=== PATIENT | male | born 1970 | race Caucasian/White ===

== ENCOUNTER 2019-12-27 14:02 | Observation (INO) | payer BC ==
[~2019-12-27] VITALS: Ht 170.2 cm; Wt 86.2 kg
[2019-12-27 14:39] LABS: BASOPHILS % (AUTO) 0.5 % (0.0-5.0); EOSINOPHILS % (AUTO) 1.4 % (0.0-8.0); HEMATOCRIT 39.3 % (42-54); LYMPHOCYTES % (AUTO) 44.3 % (21.0-51.0); MEAN CORPUSCULAR HEMOGLOBIN 30.2 pg (27.0-33.0); MEAN CORPUSCULAR HGB CONC 34.4 g/dL (32.0-36.0); MEAN CORPUSCULAR VOLUME 87.9 fL (79-99); MONOCYTES % (AUTO) 8.3 % (3.0-13.0); NEUTROPHILS % (AUTO) 45.3 % (40.0-77.0); PLATELET COUNT (AUTO) 193 K/uL (130-400); RED BLOOD CELL COUNT(AUTO) 4.47 MIL/uL (4.50-6.20); RED CELL DISTRIBUTION WIDTH 11.9 % (11.0-15.5); WHITE BLOOD COUNT (AUTO) 5.9 K/uL (4.8-10.8)
[2019-12-27 14:50] LABS: INR 0.99 (0.85-1.15); PARTIAL THROMBOPLASTIN TIME 27.8 SEC (26.3-35.5); PROTHROMBIN TIME 10.4 SEC (9.6-11.6)
[2019-12-27 15:18] LABS: B-TYPE NATRIURETIC PEPTIDE 7 pg/mL (0-100)
[2019-12-27 15:47] LABS: CREATININE 0.7 mg/dL (0.5-1.5); POTASSIUM 3.8 mmol/L (3.5-5.1)
[2019-12-27 15:52] LABS: ALBUMIN 3.7 g/dL (3.5-5.0); BILIRUBIN,TOTAL 1.1 mg/dL (0.2-1.0); TOTAL PROTEIN, SERUM 7.1 g/dL (6.0-8.3)
[2019-12-27] MEDS ORDERED: POTASSIUM CHLORIDE 20 MEQ ERTAB PO PRN (17:15)
[2019-12-27] MEDS ORDERED: NITROGLYCERIN 0.4 MG SL TAB SL PRN ×2 (17:15→18:15)
[2019-12-27] MEDS ORDERED: POTASSIUM CHLORIDE 20MEQ/100ML 100 ML IV PRN (17:15)
[2019-12-27] MEDS ORDERED: LIDOCAINE HCL-MPF 1% 2ML VIAL IJ PRN (17:15)
[2019-12-27] MEDS ORDERED: POTASSIUM CHLORIDE 10% ELIXIR 20 MEQ/15 ML UDCUP PO PRN (17:15)
[2019-12-27 17:36] LABS: APPEARANCE,URINE Clear (CLEAR); BILIRUBIN,URINE Negative (NEGATIVE); COLOR,URINE Yellow (YELLOW); GLUCOSE, URINE (UA) Negative (NEGATIVE); KETONES,URINE Trace mg/dL (NEGATIVE); LEUKOCYTE ESTERASE ,URINE Negative (NEGATIVE); NITRATE,URINE Negative (NEGATIVE); OCCULT BLOOD,URINE Negative (NEGATIVE); PROTEIN,URINE Negative (NEGATIVE); UROBILINOGEN,URINE 0.2 mg/dL (0.2-1.0)
[2019-12-27 17:52] LABS: RBC,URINE 0-1 /HPF (0-1)
[2019-12-27 17:53] LABS: BACTERIA,URINE None Seen /HPF (None Seen); SQUAMOUS EPITHELIAL CELL,UR 0-2 /HPF (0-2); WBC,URINE 0-1 /HPF (0-1)
[2019-12-27] MEDS: SODIUM CHLORIDE 0.9% 1000ML 1,000 ML IV SCH (18:13)
[2019-12-27] MEDS ORDERED: ACETAMINOPHEN 325 MG TAB PO PRN (18:15)
[2019-12-27] MEDS ORDERED: DEXTROSE 50%-WATER 50 ML DISP.SYRIN IV PRN (18:15)
[2019-12-27] MEDS ORDERED: MORPHINE SULFATE 4 MG/1ML SYG IV PRN (18:15)
[2019-12-27] MEDS ORDERED: LACTULOSE 20 GM/30 ML UDCUP PO PRN (18:15)
[2019-12-27] MEDS ORDERED: GLUCAGON 1MG KIT 1 MG ML IM PRN (18:15)
[2019-12-27] MEDS ORDERED: MORPHINE SULFATE 2 MG/ML 1ML SYG IV PRN (18:15)
[2019-12-27] MEDS ORDERED: ASPIRIN 325 MG TABLET ONE (20:00)
[2019-12-27 20:25] LABS: CHOLESTEROL 134 mg/dL (<200); CREATINE KINASE, TOTAL 34 U/L (21-232); HDL CHOLESTEROL 78 mg/dL (29-71); LDL DIRECT 81 mg/dL (0-99); MYOGLOBIN 27 ng/mL (10-92); TRIGLYCERIDES 157 mg/dL (30-200); TROPONIN I < 0.04 ng/mL (0.00-0.06)
[2019-12-27] MEDS ORDERED: ATORVASTATIN CALCIUM 20 MG TABLET PO SCH (21:00)
[2019-12-27] MEDS: FAMOTIDINE/PF 20 MG/2 ML VIAL IV SCH (21:00)
[2019-12-27] MEDS: INSULIN HUMULIN R 100 UNIT/ML 3ML SQ SCH (21:00)
[2019-12-27] MEDS ORDERED: ATOR20TA65 PO (21:09)
[2019-12-27] MEDS ORDERED: TELM80TA10 PO (21:09)
[2019-12-27] MEDS ORDERED: GLIP5TAB11 PO (21:09)
[2019-12-27] MEDS ORDERED: METF500S7 PO (21:09)
[2019-12-27] MEDS ORDERED: FAMOTIDINE/PF 20 MG/2 ML VIAL IV ONE (22:17)
[2019-12-27] MEDS ORDERED: SODIUM CHLORIDE 0.9% 1000ML 1,000 ML IV ONE (22:17)
[2019-12-28] VITALS (12 sets, daily range): BP systolic 115–131; BP diastolic 69–85
--- NOTE | 2019-12-28 01:06 | NUR ---
received from er via stretcher into room 217/ tele status [id number]. no distress noted. no cp nor sob at this time. connected to bedside monitor. sinus rhythm hr 62. no ectopy noted. full assessment performed and documented. instructed on plan of care. including npo status. verbalized understanding.
--- NOTE | 2019-12-28 02:02 | NUR ---
instructed on npo status for possible LHC tomorrow. verbalized understanding.
[2019-12-28 04:36] LABS: MEAN CORPUSCULAR HEMOGLOBIN 30.2 pg (27.0-33.0); MEAN CORPUSCULAR HGB CONC 33.8 g/dL (32.0-36.0); MEAN CORPUSCULAR VOLUME 89.2 fL (79-99); PLATELET COUNT (AUTO) 193 K/uL (130-400); RED BLOOD CELL COUNT(AUTO) 4.37 MIL/uL (4.50-6.20); RED CELL DISTRIBUTION WIDTH 12.1 % (11.0-15.5); WHITE BLOOD COUNT (AUTO) 5.4 K/uL (4.8-10.8)
[2019-12-28 05:24] LABS: ALBUMIN 3.3 g/dL (3.5-5.0); CREATININE 0.7 mg/dL (0.5-1.5); POTASSIUM 3.9 mmol/L (3.5-5.1); TOTAL PROTEIN, SERUM 6.5 g/dL (6.0-8.3)
[2019-12-28] MEDS: SODIUM CHLORIDE 0.9% 1000ML 1,000 ML IV SCH ×2 (06:13→14:13)
[2019-12-28] MEDS: INSULIN HUMULIN R 100 UNIT/ML 3ML SQ SCH (06:14)
--- NOTE | 2019-12-28 07:52 | NUR ---
PT IS STABLE-HAS NO CHEST PAIN. PENDING DR HERRERA ROUNDS FOR PLAN OF CARE. WILL KEEP NPO UNTIL SEEN BY DR HERRERA
--- NOTE | 2019-12-28 08:44 | NUR ---
RECEIVED PHONE CALL FROM NURSE PRACTITIONER PER DIEMDOUGLAS ROD RN-ASKED ME TO GET PT READY FOR LHC WITH DR HERRERA. I HAVE NO ORDERS. I HAVE PAGED DR HERRERA TO CONFIRM
[2019-12-28] MEDS ORDERED: TELMISARTAN 80MG PO SCH (09:00)
[2019-12-28] MEDS ORDERED: ASPIRIN 325 MG TABLET PO SCH (09:00)
[2019-12-28] MEDS: FAMOTIDINE/PF 20 MG/2 ML VIAL IV SCH (09:00)
[2019-12-28] MEDS ORDERED: HEPARIN SODIUM 1000UNIT/ML 10ML VIAL ONE (09:11)
[2019-12-28] MEDS ORDERED: FENTANYL CITRATE PF 50 MCG/1 ML 2ML VIAL ONE (09:11)
[2019-12-28] MEDS ORDERED: NITROGLYCERIN 1 MG/VIAL VIAL IV ONE (09:11)
[2019-12-28] MEDS ORDERED: IOHEXOL 350 MG/ML 100ML INFUS..BTL IV ONE (09:11)
[2019-12-28] MEDS ORDERED: MIDAZOLAM HCL 1 MG/ML 2ML VIAL ONE (09:11)
[2019-12-28] MEDS ORDERED: SODIUM BICARB 50MEQ 50ML VIAL ONE (09:12)
[2019-12-28] MEDS ORDERED: LIDOCAINE HCL 2% 20ML ONE (09:12)
--- NOTE | 2019-12-28 09:30 | NUR ---
PT TAKEN TO [facility]
[2019-12-28] MEDS ORDERED: NICARDIPINE HCL 25 MG/10 ML ML IV ONE (09:50)
--- NOTE | 2019-12-28 11:01 | NUR ---
BACK FROM LIABILITY CLAIMS REPRESENTATIVE-NORMAL HEART CATH. RADIAL PUNCTURE SITE RT WRIST INTACT WITH RADIAL BAND IN PLACE .
[2019-12-28] MEDS ORDERED: SODIUM CHLORIDE 0.9% 10 ML VIAL IVP PRN (11:30)
== END 2019-12-28 18:00 | disposition home or self-care (01) ==
LOC: EDSTATUS 14:02 → EDH 14:14 → EDHIP 14:15 → 2CH 12-28 01:08
PROVIDERS: ADMIT Internal Medicine; ATTEND Internal Medicine
DX: R07.89 Other chest pain (principal); R06.02 Shortness of breath; E11.9 Type 2 diabetes mellitus without complications; I10 Essential (primary) hypertension; R53.83 Other fatigue
CPT/HCPCS: 36415 ×2; 71046; 80053 ×2; 80061; 81001; 82550; 82948 ×2; 83874; 83880; 84484 ×3; 85025; 85027; 85610; 85730; 93005 ×3; 93458; 99283; C1769; C1894; G0378 ×11; J1644 ×2; J2250; J3010; J3490 ×5; J7030 ×2; Q9965; Q9967; 99156; 99157